=== PATIENT | female | born 1965 | race Caucasian/White ===

== ENCOUNTER 2018-03-16 22:33 | Inpatient (IN) | payer OTHER ==
[~2018-03-16 22:33] MED LIST: MELATONIN 5 MG TABLETS PO PRN
--- NOTE | 2018-03-16 23:42 | HP ---
COWS - Scale Resting Pulse: 1= [place] 81-100 Sweatin= Chills/Flushing Restless Observation: 1= Difficult to Sit Still Pupil Size: 0= Normal to Room Light Bone or Joint Aches: 1= Mild Discomfort Runny Nose/ Eye Tearin= Runny Nose/Eyes GI Upset > 30mins: 2= Nausea/Diarrhea Tremor Observation: 1= Tremor [place], Not Seen Yawning Observation: 1= 1-2x During Session Anxiety or Irritability: 2=Irritable/Anxious Goose Flesh Skin: 0=Smooth Skin COWS Score: 12 CIWA Score - CIWA Score Nausea/Vomitin-Mild Nausea/No Vomiting Muscle Tremors: 2 Anxiety: 3 Agitation: 3 Paroxysmal Sweats: 2 Orientation: 0-Oriented Tacttile Disturbances: 0-None Auditory Disturbances: 1-Very Mild Visual Disturbances: 0-None Headache: 2-Mild CIWA-Ar Total Score: 14 Admission [facility] Chief Complaint: opioid and alcohol withdrawal symptoms Allergies/Adverse Reactions: Allergies Allergy/AdvReac Type Severity Reaction Status Date / Time No Known Allergies Allergy Verified 03/16/18 23:57 History of Present Illness: 52 yo female with hx of nicotine, heroin and alcohol dependence is here seeking detox. Patient was seen at [facility] ED on 03/14/18 for elevated blood pressure and toothache. PMHX: HTN, low back pain, dentalgia, ADHD. Denies suicidal / homicidal ideation or hx of suicide attempt. Reports attempted detox at [facility] 6 months ago left after a day. Reports no significant period of sobriety. Denies hx of seizures or blackouts. denise Lang Date: 1965 Address: [address] [place] [address] [address] [place] [id number] Sex: Female Rx Written Rx Dispensed Drug Quantity Days Supply Prescriber Name 02/22/2018 02/23/2018 dextroamp-amphetamin 10 mg tab 45 15 Wyatt Fitzgerald MD 02/11/2018 02/11/2018 dextroamp-amphetamin 10 mg tab 45 15 Wyatt Fitzgerald MD 01/25/2018 01/25/2018 dextroamp-amphetamin 10 mg tab 45 15 Wyatt Fitzgerald MD 01/19/2018 01/19/2018 dextroamp-amphetamin 10 mg tab 30 10 Wyatt Fitzgerald MD 01/04/2018 01/04/2018 dextroamp-amphetamin 10 mg tab 60 15 Wyatt Fitzgerald MD 12/24/2017 12/25/2017 dextroamp-amphetamin 10 mg tab 60 15 Wyatt Fitzgerald MD 12/10/2017 12/11/2017 dextroamp-amphetamin 10 mg tab 60 15 Wyatt Fitzgerald MD 11/26/2017 11/28/2017 dextroamp-amphetamin 10 mg tab 60 15 Wyatt Fitzgerald MD 11/12/2017 11/15/2017 dextroamp-amphetamin 10 mg tab 60 15 Wyatt Fitzgerald MD 11/03/2017 11/03/2017 dextroamp-amphetamin 10 mg tab 60 15 Wyatt Fitzgerald MD 10/20/2017 10/22/2017 dextroamp-amphetamin 10 mg tab 60 15 Wyatt Fitzgerald MD 10/09/2017 10/10/2017 dextroamp-amphetamin 10 mg tab 60 15 Wyatt Fitzgerald MD 09/25/2017 09/29/2017 dextroamp-amphetamin 10 mg tab 60 15 Wyatt Fitzgerald MD 09/10/2017 09/14/2017 dextroamp-amphetamin 10 mg tab 60 15 Wyatt Fitzgerald MD Exam Limitations: No Limitations - Ebola screening Have you traveled outside of the country in the last 21 days: No Have you had contact with anyone from an Ebola affected area: No Have you been sick,other than usual withdrawal symptoms: No Do you have a fever: No - Review of Systems Constitutional: Chills, Diaphoresis, Loss of Appetite, Changes in sleep, Unintentional Wgt. Loss EENT: reports: Dental Problems (tx recently of dental pain on amoxicillin) Respiratory: reports: No Symptoms reported Cardiac: reports: No Symptoms Reported GI: reports: Nausea, Poor Appetite, Poor Fluid Intake : reports: No Symptoms Reported Musculoskeletal: reports: Back Pain Integumentary: reports: No Symptoms Reported Neuro: reports: Headache Endocrine: reports: Excessive Sweating, Increased Thirst Hematology: reports: No Symptoms Reported Psychiatric: reports: Anxious Other Systems: Reviewed and Negative Patient History - Patient Medical History Hx Anemia: No Hx Asthma: Yes (NO MEDS) Hx Chronic Obstructive Pulmonary Disease (COPD): No Hx Cancer: No Hx Cardiac Disorders: No Hx Congestive Heart Failure: No Hx Hypertension: No Hx Hypercholesterolemia: No Hx Pacemaker: No HX Cerebrovascular Accident: No Hx Seizures: No Hx Dementia: No Hx Diabetes: No Hx Gastrointestinal Disorders: No Hx Liver Disease: No Hx Genitourinary Disorders: No Hx Sexually Transmitted Disorders: No Hx Renal Disease (ESRD): No Hx Thyroid Disease: No Hx Human Immunodeficiency Virus (HIV): No (last 2012 negative, declines testing ) Hx Hepatitis C: No Hx Depression: Yes Hx Suicide Attempt: No Hx Bipolar Disorder: Yes Hx Schizophrenia: No - Patient Surgical History Past Surgical History: Yes Hx Neurologic Surgery: No Hx Cataract Extraction: No Hx Cardiac Surgery: No Hx Lung Surgery: No Hx Breast Surgery: No Hx Breast Biopsy: No Hx Abdominal Surgery: No Hx Appendectomy: No Hx Cholecystectomy: No Hx Genitourinary Surgery: No Hx Section: Yes (1 C- SECTION 13 years ago) Hx Orthopedic Surgery: No Anesthesia Reaction: No - PPD History Previous Implant?: Yes Documented Results: Negative w/proof Date: 06/01/16 PPD to be Administered?: Yes - Reproductive History Last Menstrual Period: 05/03/16 - Smoking Cessation Smoking history: Never smoked Have you smoked in the past 12 months: No Aproximately how many cigarettes per day: 15 Hx Chewing Tobacco Use: No Family Disease History - Family Disease History Family History: Unable to Obtain Admission Physical Exam BHS - Vital Signs Vital Signs: Vital Signs - 24 hr 03/16/18 23:24 Pulse Rate 87 Respiratory 18 Rate Blood Pressure 195/103 - Physical General Appearance: Yes: Disheveled, Mild Distress, Sweating, Anxious HEENTM: Yes: EOMI, Hearing grossly Normal, Normal ENT Inspection, Normocephalic , Normal Voice, VIV, Tm's normal Respiratory: Yes: Chest Non-Tender, Lungs Clear, Normal Breath Sounds, No Respiratory Distress, No Accessory Muscle Use Neck: Yes: No masses,lesions,Nodules, Trachea in good position Breast: Yes: Breast Exam Deferred Cardiology: Yes: Regular Rhythm, Regular Rate Abdominal: Yes: Normal Bowel Sounds, Non Tender, Flat, Soft Genitourinary: Yes: Within Normal Limits Back: Yes: Normal Inspection Musculoskeletal: Yes: full range of Motion, Gait Steady, Pelvis Stable, Back pain Extremities: Yes: Normal Capillary Refill, Normal Inspection, Normal Range of Motion, Non-Tender 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 intact, Fully Oriented, Alert, Motor Strength 5/5, Depressed Affect Integumentary: Yes: Normal Color, Warm, Diaphoresis Lymphatic: Yes: Within Normal Limits - Diagnostic (1) Hypertension Current Visit: Yes Status: Acute (2) Psychiatric disorder Current Visit: Yes Status: Suspected (3) Elevated blood pressure reading with diagnosis of hypertension Current Visit: Yes Status: Acute (4) Alcohol dependence with uncomplicated withdrawal Current Visit: Yes Status: Acute (5) Anxiety Current Visit: Yes Status: Acute (6) Nicotine dependence Current Visit: Yes Status: Acute Qualifiers: Nicotine product type: cigarettes (7) Opioid dependence with withdrawal Current Visit: Yes Status: Acute (8) Asthma Current Visit: Yes Status: Chronic Qualifiers: Asthma severity: mild Asthma complication type: uncomplicated Cleared for Admission [facility] - Detox or Rehab [facility] Level of Care: Medically Managed Detox Regimen/Protocol: Methadone/Librium [facility] Breath Alcohol Content Breath Alcohol Content: 0.008 Urine Pregancy Test - Result Urine Test Results: Negative- NO Line Present Urine Drug Screen - Results Drug Screen Negative: No Urine Drug Screen Results: THC-Marijuana, OPI-Opiates, AMP-Amphetamines, MTD- Methadone
[2018-03-16] MEDS ORDERED: MAGNESIUM CITRATE 300 ML BOTTLE PO PRN (23:46)
[2018-03-16] MEDS ORDERED: MAG HYDROX/AL HYDROX/SIMETH 30 ML UNIT-DOSE CUP PO PRN (23:46)
[2018-03-16] MEDS ORDERED: LOPERAMIDE HCL 2 MG CAPSULE PO PRN (23:46)
[2018-03-16] MEDS ORDERED: MAGNESIUM HYDROX 2400MG/30ML ORAL SUSPENSION 30 ML CUP PO PRN (23:46)
[2018-03-16] MEDS ORDERED: guaiFENesin/D-METHORPHAN HB 10 ML UNIT-DOSE CUPS PO PRN (23:46)
[2018-03-16] MEDS ORDERED: P-EPHED 60MG/TRIPROLIDI 2.5MG TABLET PO PRN (23:46)
[2018-03-16] MEDS ORDERED: MENTHOL/PHENOL 1 EACH UD MM PRN (23:46)
[2018-03-16] MEDS ORDERED: hydrOXYzine PAMOATE 50 MG CAPSULE (FP) PO PRN (23:46)
[2018-03-16] MEDS ORDERED: NICOTINE POLACRILEX 2 MG GUM BC PRN (23:46)
[2018-03-16] MEDS ORDERED: cloNIDine HCL 0.1 MG TABLET PO ONE (23:58)
[2018-03-17] MEDS ORDERED: METHADONE HCL 10 MG TABLET (FOR DETOX USE ONLY) PO ONE ×4 (00:05→22:00)
[2018-03-17] MEDS ORDERED: chlordiazePOXIDE HCL 25 MG CAPSULE PO ONE (00:05)
[2018-03-17] MEDS ORDERED: chlordiazePOXIDE HCL 25 MG CAPSULE PO PRN (00:05)
[2018-03-17] MEDS ORDERED: ALBUTEROL SO4 0.083% IH SOL 2.5 MG/3 ML VIAL.NEB. NEB PRN (00:08)
[2018-03-17] MEDS ORDERED: BENZOCAINE 20 % GEL 9 GM TUBE MM PRN (00:08)
[2018-03-17] MEDS: CYCLOBENZAPRINE HCL 5 MG TABLET PO SCH ×4 (01:53→22:48)
--- NOTE | 2018-03-17 07:35 | CONSULT ---
[facility] Psychiatric Consult - Data Date of interview: 03/17/18 Admission source: [facility] Identifying data: This is 52 year old female, single mothe rof three, homeless, unemployed , on PA, withy no psychiatric hospitalization history, with history of Amphetamins, Methadone, heroin and alcohol dependence is here seeking for detox. Patient reports withdrawal symptoms. Substance Abuse History: Urine Drug Screen Results: THC-Marijuana, OPI-Opiates, AMP-Amphetamines, MTD-Methadone Medical History: HTN, low back pain, dentalgia. MMTP 60MG PER DAY . D/C ON 2016 Psychiatric History: Patient reports history of ADHD, reports on Adderal prior to admission. As per computer there is a history of Bipolar Disorder. Reports no medications taking prior to admission, but Adderal forn ADHD. Physical/Sexual Abuse/Trauma History: Denies Additional Comment: Urine Drug Screen Results: THC-Marijuana, OPI-Opiates, AMP- Amphetamines, MTD-Methadone. Observation. Detox Unit Carte Protocol Mental Status Exam - Mental Status Exam Alert and Oriented to: Person Cognitive Function: Fair Patient Appearance: Unkempt Mood: Sad Affect: Flat Patient Behavior: Cooperative Speech Pattern: Delayed Voice Loudness: Mildly Soft/Quiet Thought Process: Goal Oriented Thought Disorder: Being Controlled Hallucinations: Denies Suicidal Ideation: Denies Homicidal Ideation: Denies Insight/Judgement: Fair Sleep: Difficulty falling asleep Appetite: Fair Muscle strength/Tone: Mild Hypotonicity Gait/Station: Normal Additional Comments: Observation. Detox Unit Carte Protocol Psychiatric Findings - Problem List ([place] 1, 2,3) (1) Alcohol dependence with uncomplicated withdrawal Current Visit: Yes Status: Acute (2) Elevated blood pressure reading with diagnosis of hypertension Current Visit: Yes Status: Acute (3) Nicotine dependence Current Visit: Yes Status: Acute Qualifiers: Nicotine product type: cigarettes (4) Opioid dependence with withdrawal Current Visit: Yes Status: Acute (5) Asthma Current Visit: Yes Status: Chronic Qualifiers: Asthma severity: mild Asthma complication type: uncomplicated (6) Bipolar disorder Current Visit: No Status: Suspected
[2018-03-17] MEDS: chlordiazePOXIDE HCL 25 MG CAPSULE PO SCH ×4 (07:37→22:47)
--- NOTE | 2018-03-17 07:37 | CONSULT ---
[facility] Psychiatric Consult - Data Date of interview: 03/17/18 Admission source: [facility] Substance Abuse History: Urine Drug Screen Results: THC-Marijuana, OPI-Opiates, AMP-Amphetamines, MTD-Methadone Additional Comment: Urine Drug Screen Results: THC-Marijuana, OPI-Opiates, AMP- Amphetamines, MTD-Methadone
--- NOTE | 2018-03-17 09:40 | EKG ---
Test Reason : Blood Pressure : / mmHG Vent. Rate : 077 BPM Atrial Rate : 077 BPM P-R Int : 132 ms QRS Dur : 086 ms QT Int : 418 ms P-R-T Axes : 062 072 059 degrees QTc Int : 473 ms NORMAL SINUS RHYTHM VOLTAGE CRITERIA FOR LEFT VENTRICULAR HYPERTROPHY ABNORMAL ECG WHEN COMPARED WITH ECG OF 30-APR-2005 15:26, NONSPECIFIC T WAVE ABNORMALITY NOW EVIDENT IN INFERIOR LEADS QT HAS LENGTHENED Confirmed by JUANITA MARI, OLGA ([id number]) on 03/17/2018 9:39:42 AM Referred By: Confirmed By:OLGA GRANT MD
--- NOTE | 2018-03-17 09:59 | PN ---
[facility] CIWA - CIWA Score Nausea/Vomitin-Mild Nausea/No Vomiting Muscle Tremors: 4-Moderate,w/Arms Extend Anxiety: 3 Agitation: 3 Paroxysmal Sweats: 1-Minimal Palms Moist Orientation: 0-Oriented Tacttile Disturbances: 0-None Auditory Disturbances: 0-None Visual Disturbances: 0-None Headache: 1-Very Mild CIWA-Ar Total Score: 13 BHS COWS - Scale Resting Pulse: 0= MD 80 or Below Sweatin= Chills/Flushing Restless Observation: 1= Difficult to Sit Still Pupil Size: 0= Normal to Room Light Bone or Joint Aches: 1= Mild Discomfort Runny Nose/ Eye Tearin= Nasal Congestion GI Upset > 30mins: 2= Nausea/Diarrhea Tremor Observation of Outstretched Hands: 2= Slight Tremor Visible Yawning Observation: 2= >3x During Session Anxiety or Irritability: 1=Feels Anxious/Irritable Goose Flesh Skin: 0=Smooth Skin COWS Score: 11 S Progress Note (SOAP) Subjective: BODY ACHE JOINT PAIN SWEAT TREMOR ANXIETY RESTLESSNESS Objective: 03/17/18 09:56 Vital Signs Temperature 97.7 F 03/17/18 09:42 Pulse Rate 76 03/17/18 09:42 Respiratory Rate 18 03/17/18 09:42 Blood Pressure 175/100 03/17/18 09:42 O2 Sat by Pulse Oximetry (%) LAB NOT AVAILABLE AT THIS TIME Assessment: 03/17/18 09:58 WITHDRAWAL SX 03/17/18 09:58 HYPERTENSION Plan: CONTINUE DETOX INCREASE LOSARTAN TO 50 MG BID ADDITION TO AMLODIPINE 10 MG BEGIN 03/17/18 10 AM CLONIDIN 0.1 MG Q6H PRN
[2018-03-17] MEDS ORDERED: LOSARTAN POTASSIUM 50 MG TABLET (FP) PO SCH (10:00)
[2018-03-17 10:05] LABS: HEMATOCRIT 37.8 % (32.4-45.2); HEMOGLOBIN 12.3 GM/dL (10.7-15.3); MCH 21.9 pg (25.7-33.7); MCHC 32.5 g/dl (32.0-36.0); MEAN CELL VOLUME 67.4 fl (80-96); MEAN PLT VOLUME 8.9 fl (7.5-11.1); PLATELET COUNT 249 K/MM3 (134-434); RBC 5.61 M/mm3 (3.60-5.2); RDW 15.9 % (11.6-15.6); WHITE BLOOD COUNT 7.7 K/mm3 (4.0-10.0)
[2018-03-17] MEDS: AMOXICILLIN 500 MG CAPSULE (FP) PO SCH ×2 (10:55→22:48)
[2018-03-17] MEDS: PRENATAL VITAMINS W/ FOLIC ACID TABLET (FP) PO SCH (10:55)
[2018-03-17] MEDS: amLODIPine BESYLATE 10 MG TABLET (FP) PO SCH (10:56)
[2018-03-17] MEDS: cloNIDine HCL 0.1 MG TABLET PO PRN ×2 (10:57→22:48)
[2018-03-17] MEDS: NICOTINE 14 MG/24 HOURS TOPICAL PATCH TD SCH (10:58)
[2018-03-17] MEDS ORDERED: LOSARTAN POTASSIUM 50 MG TABLET (FP) PO ONE (11:05)
[2018-03-17 13:22] LABS: CHLORIDE 104 mmol/L (98-107); POTASSIUM 3.9 mmol/L (3.5-5.1); SODIUM 139 mmol/L (136-145)
[2018-03-17 13:38] LABS: ALBUMIN 3.4 g/dl (3.4-5.0); ALK PHOS 54 U/L (45-117); ANION GAP 9 (8-16); BILIRUBIN,TOTAL 0.3 mg/dL (0.2-1.0); BLOOD UREA NITROGEN 11 mg/dL (7-18); CALCIUM 8.5 mg/dL (8.5-10.1); CO2 26 mmol/L (21-32); CREATININE 0.7 mg/dL (0.55-1.02); GLUCOSE,RANDOM 79 mg/dL (74-106); SGOT/AST 20 U/L (15-37); SGPT/ALT 19 U/L (12-78); TOT PROT 6.3 g/dl (6.4-8.2)
[2018-03-17] MEDS: LOSARTAN POTASSIUM 50 MG TABLET (FP) PO SCH (22:48)
[2018-03-17] MEDS: THIAMINE HCL 100 MG TABLET (FP) PO SCH (22:52)
[2018-03-18] MEDS: chlordiazePOXIDE HCL 25 MG CAPSULE PO SCH ×4 (06:14→22:37)
[2018-03-18] MEDS: CYCLOBENZAPRINE HCL 5 MG TABLET PO SCH ×3 (06:14→22:37)
[2018-03-18] MEDS ORDERED: METHADONE HCL 5 MG TABLET (FOR DETOX USE ONLY) PO SCH (10:00)
--- NOTE | 2018-03-18 10:56 | PN ---
[facility] CIWA - CIWA Score Nausea/Vomitin-Mild Nausea/No Vomiting Muscle Tremors: 3 Anxiety: 2 Agitation: 2 Paroxysmal Sweats: 1-Minimal Palms Moist Orientation: 0-Oriented Tacttile Disturbances: 1-Very Mild Itch/Numbness Auditory Disturbances: 0-None Visual Disturbances: 0-None Headache: 0-None Present CIWA-Ar Total Score: 10 BHS COWS - Scale Resting Pulse: 0= [place] 80 or Below Sweatin= Chills/Flushing Restless Observation: 1= Difficult to Sit Still Pupil Size: 0= Normal to Room Light Bone or Joint Aches: 1= Mild Discomfort Runny Nose/ Eye Tearin= Nasal Congestion GI Upset > 30mins: 2= Nausea/Diarrhea Tremor Observation of Outstretched Hands: 2= Slight Tremor Visible Yawning Observation: 1= 1-2x During Session Anxiety or Irritability: 1=Feels Anxious/Irritable Goose Flesh Skin: 0=Smooth Skin COWS Score: 10 [facility] Progress Note (SOAP) Subjective: joint pain body ache tremor sweat trouble sleep at night irritable restlessness Objective: 03/18/18 10:55 Vital Signs Temperature 97.3 F L 03/18/18 09:21 Pulse Rate 61 03/18/18 09:21 Respiratory Rate 18 03/18/18 09:21 Blood Pressure 126/75 03/18/18 09:21 O2 Sat by Pulse Oximetry (%) Laboratory Last Values WBC 7.7 K/mm3 (4.0-10.0) 03/17/18 06:40 RBC 5.61 M/mm3 (3.60-5.2) H 03/17/18 06:40 Hgb 12.3 GM/dL (10.7-15.3) 03/17/18 06:40 Hct 37.8 % (32.4-45.2) 03/17/18 06:40 MCV 67.4 fl (80-96) L 03/17/18 06:40 MCH 21.9 pg (25.7-33.7) L 03/17/18 06:40 MCHC 32.5 g/dl (32.0-36.0) 03/17/18 06:40 RDW 15.9 % (11.6-15.6) H 03/17/18 06:40 Plt Count 249 K/MM3 (134-434) 03/17/18 06:40 MPV 8.9 fl (7.5-11.1) 03/17/18 06:40 Sodium 139 mmol/L (136-145) 03/17/18 06:40 Potassium 3.9 mmol/L (3.5-5.1) 03/17/18 06:40 Chloride 104 mmol/L (98-107) 03/17/18 06:40 Carbon Dioxide 26 mmol/L (21-32) 03/17/18 06:40 Anion Gap 9 (8-16) 03/17/18 06:40 BUN 11 mg/dL (7-18) 03/17/18 06:40 Creatinine 0.7 mg/dL (0.55-1.02) 03/17/18 06:40 Creat Clearance w eGFR > 60 (>60) 03/17/18 06:40 Random Glucose 79 mg/dL (74-106) 03/17/18 06:40 Calcium 8.5 mg/dL (8.5-10.1) 03/17/18 06:40 Total Bilirubin 0.3 mg/dL (0.2-1.0) 03/17/18 06:40 AST 20 U/L (15-37) 03/17/18 06:40 ALT 19 U/L (12-78) 03/17/18 06:40 Alkaline Phosphatase 54 U/L (45-117) 03/17/18 06:40 Total Protein 6.3 g/dl (6.4-8.2) L 03/17/18 06:40 Albumin 3.4 g/dl (3.4-5.0) 03/17/18 06:40 RPR Titer Nonreactive (NONREACTIVE) 03/17/18 06:40 lab noted Assessment: 03/18/18 10:56 withdrawal sx Plan: continue detox
[2018-03-18] MEDS: PRENATAL VITAMINS W/ FOLIC ACID TABLET (FP) PO SCH (11:18)
[2018-03-18] MEDS: amLODIPine BESYLATE 10 MG TABLET (FP) PO SCH (11:18)
[2018-03-18] MEDS: AMOXICILLIN 500 MG CAPSULE (FP) PO SCH ×2 (11:18→22:37)
[2018-03-18] MEDS: LOSARTAN POTASSIUM 50 MG TABLET (FP) PO SCH ×2 (11:19→22:37)
[2018-03-18] MEDS: NICOTINE 14 MG/24 HOURS TOPICAL PATCH TD SCH (11:22)
--- NOTE | 2018-03-18 14:48 | PN ---
Psychiatric Progress Note Vital Signs: Vital Signs Period Temp Pulse Resp BP Sys/Quispe Pulse Ox Last 24 Hr 97.3 F-99.7 F 59-69 16-18 115-141/66-78 Date of Session: 03/18/18 Chief Complaint:: Agitation HPI: As per nursing reports patinent agitated and demending to start Adderal due to ADHD she has. Patient reports taking Adderal oprior to admission. Current Medications: Active Medications Generic Name Dose Route Start Last Admin Trade Name Freq PRN Reason Stop Dose Admin Acetaminophen 650 mg 03/16/18 23:46 Tylenol - PO Q4H PRN FEVER Al Hydroxide/Mg Hydroxide 30 ml 03/16/18 23:46 03/17/18 12:54 Mylanta Oral Suspension - PO 30 ml Q6H PRN Administration DYSPEPSIA Albuterol Sulfate 1 amp 03/17/18 00:08 Ventolin 0.083% Nebulizer Soln - NEB Q4H PRN SHORT OF BREATH/WHEEZING Amlodipine Besylate 10 mg 03/17/18 10:15 03/18/18 11:18 Norvasc - PO 10 mg DAILY ALFREDO Administration Amoxicillin 500 mg 03/17/18 10:00 03/18/18 11:18 Amoxicillin - PO 500 mg BID ALFREDO Administration Benzocaine 1 applic 03/17/18 00:08 Anbesol - MM Q2H PRN dentalgia Chlordiazepoxide HCl 25 mg 03/18/18 05:00 03/18/18 11:19 Librium - PO 03/18/18 23:01 Not Given F1M-PCT ALFREDO Chlordiazepoxide HCl 15 mg 03/19/18 05:00 Librium - PO 03/19/18 23:01 [id number] ALFREDO Chlordiazepoxide HCl 10 mg 03/20/18 05:00 Librium - PO 03/20/18 23:01 [id number]-REV ALFREDO Chlordiazepoxide HCl 25 mg 03/17/18 00:05 Librium - PO 03/20/18 00:05 Q4H PRN WITHDRAWAL(CONT SUBST) Clonidine 0.1 mg 03/17/18 10:05 03/17/18 22:48 Catapres - PO 0.1 mg Q6H PRN Administration HYPERTENSION Cyclobenzaprine HCl 5 mg 03/16/18 23:45 03/18/18 14:43 Cyclobenzaprine Hcl PO Not Given TID ALFREDO Eucalyptus/Menthol/Phenol/Sorbitol 1 each 03/16/18 23:46 Cepastat Lozenge - MM Q4H PRN SORE THROAT Guaifenesin 10 ml 03/16/18 23:46 Robitussin Dm - PO Q6H PRN COUGH Hydroxyzine Pamoate 50 mg 03/16/18 23:46 Vistaril - PO Q4H PRN AGITATION Ibuprofen 400 mg 03/16/18 23:46 Motrin - PO Q6H PRN PAIN LEVEL 4-6 Loperamide HCl 4 mg 03/16/18 23:46 Imodium - PO Q6H PRN DIARRHEA Losartan Potassium 50 mg 03/17/18 10:01 03/18/18 11:19 Cozaar - PO 50 mg BID ALFREDO Administration Magnesium Citrate 300 ml 03/16/18 23:46 Citroma - PO Q48H PRN CONSTIPATION Magnesium Hydroxide 30 ml 03/16/18 23:46 Milk Of Magnesia - PO DAILY PRN CONSTIPATION Melatonin 5 mg 03/16/18 22:00 Melatonin PO HS PRN INSOMNIA Methadone HCl 15 mg 03/19/18 10:00 Dolophine - PO 03/20/18 10:01 DAILY ALFREDO Methadone HCl 10 mg 03/21/18 10:00 Dolophine - PO 03/21/18 10:01 DAILY ALFREDO Methadone HCl 5 mg 03/22/18 06:00 Dolophine - PO 03/22/18 06:01 DAILY@0600 ALFREDO Nicotine 14 mg 03/17/18 10:00 03/18/18 11:22 Nicoderm Patch - TD Not Given DAILY [facility] Nicotine Polacrilex 2 mg 03/16/18 23:46 Nicorette Gum - BC Q2H PRN NICOTINE REPLACEMENT RX Multivit/Folic Acid/Iron 1 tab 03/17/18 10:00 03/18/18 11:18 Vitamins (Sjr) - PO 1 tab DAILY [facility] Administration Pseudoephedrine/Triprolidine 1 combo 03/16/18 23:46 Actifed - PO TID PRN NASAL CONGESTION Thiamine HCl 100 mg 03/17/18 22:00 03/17/18 22:52 Vitamin B1 - PO Not Given HS [facility] Medication(s) Change(s): none Provider note:: Patient engaged in supportive psychotherapy, relaxed, became cooperative and asking to be discharge on Thursday03/21/18. Denies suicidal and homicidal ideation. Mental Status Exam - Mental Status Exam Alert and Oriented to: Place, Person Cognitive Function: Fair Patient Appearance: Unkempt Mood: Anxious, Irritable Affect: Mood Congruent Patient Behavior: Impulsive, Talkative, Cooperative Speech Pattern: Appropriate Voice Loudness: Mildly Loud Thought Process: Goal Oriented Thought Disorder: Being Controlled Hallucinations: Denies Suicidal Ideation: Denies Homicidal Ideation: Denies Insight/Judgement: Fair Sleep: Difficulty falling asleep Appetite: Fair Muscle strength/Tone: Normal Gait/Station: Normal Additional Comments: Observation Psychiatric Treatment Plan - Problem List (1) Alcohol dependence with uncomplicated withdrawal Current Visit: Yes (2) Elevated blood pressure reading with diagnosis of hypertension Current Visit: Yes (3) Nicotine dependence Current Visit: Yes Qualifiers: Nicotine product type: cigarettes (4) Opioid dependence with withdrawal Current Visit: Yes (5) Asthma Current Visit: Yes Qualifiers: Asthma severity: mild Asthma complication type: uncomplicated (6) Bipolar disorder Current Visit: No Initial treatment plan: Observation. Detox Unit Care
[2018-03-18] MEDS: THIAMINE HCL 100 MG TABLET (FP) PO SCH (22:37)
[2018-03-19] MEDS: CYCLOBENZAPRINE HCL 5 MG TABLET PO SCH (06:24)
[2018-03-19] MEDS: chlordiazePOXIDE 5 MG CAPSULE PO SCH ×4 (06:26→23:19)
[2018-03-19] MEDS: IBUPROFEN 400 MG TABLET (FP) PO PRN (06:26)
[2018-03-19] MEDS: ACETAMINOPHEN 325 MG TABLET (FP) PO PRN ×2 (09:03→18:19)
--- NOTE | 2018-03-19 10:52 | PN ---
[facility] Progress Note (SOAP) Subjective: PT C/O SEVER BACK PAIN. PT IS OOB AMBULATING WITH STEADY GAIT. PT HAS HIGH ANXIETY AND DIFFICULTY UNDERSTANDING TREATMENT MODALITY. EXPRESSING DESIRE TO LEAVE TODAY,TOMORROW,THURSDAY WITHOUT REASONS. COUNSELOR AND THIS TEENAGE BABYSITTER HAVE SPOKEN TO PT EXPLAINING DETOX MEDICATION TAPER AND POSSIBLE REHAB OPPORTUNITY. PT IS NOT FULLY RECEPTIVE TO EXPLANATIONS. Objective: 03/19/18 10:52 Vital Signs 03/19/18 03/19/18 03/19/18 03:30 07:24 10:10 Temperature 97.7 F 98.6 F Pulse Rate 62 87 Respiratory 18 18 16 Rate Blood Pressure 181/86 150/98 Laboratory Tests 03/17/18 03/17/18 03/17/18 06:40 06:40 06:40 WBC 7.7 RBC 5.61 H Hgb 12.3 Hct 37.8 MCV 67.4 L MCH 21.9 L MCHC 32.5 RDW 15.9 H Plt Count 249 MPV 8.9 Sodium 139 Potassium 3.9 Chloride 104 Carbon Dioxide 26 Anion Gap 9 BUN 11 Creatinine 0.7 Creat Clearance w eGFR > 60 Random Glucose 79 Calcium 8.5 Total Bilirubin 0.3 AST 20 ALT 19 Alkaline Phosphatase 54 Total Protein 6.3 L Albumin 3.4 RPR Titer Nonreactive Assessment: 03/19/18 10:53 WITHDRAWAL SX Plan: CONTINUE DETOX COUNSELOR TO FOLLOW UP WITH PATIENT NEEDED. INCREASE FLEXERIL 10 MG PO Q8H DIRECTED FOR MUSCLE SPASMS LIDOCAINE PATCH 5% TP DAILY DIRECTED FOR PAIN
[2018-03-19] MEDS: METHADONE HCL 5 MG TABLET (FOR DETOX USE ONLY) PO SCH (11:03)
[2018-03-19] MEDS: PRENATAL VITAMINS W/ FOLIC ACID TABLET (FP) PO SCH (11:05)
[2018-03-19] MEDS: amLODIPine BESYLATE 10 MG TABLET (FP) PO SCH (11:05)
[2018-03-19] MEDS: AMOXICILLIN 500 MG CAPSULE (FP) PO SCH ×2 (11:05→23:17)
[2018-03-19] MEDS: cloNIDine HCL 0.1 MG TABLET PO PRN (11:05)
[2018-03-19] MEDS: LOSARTAN POTASSIUM 50 MG TABLET (FP) PO SCH ×2 (11:05→23:17)
[2018-03-19] MEDS: LIDOCAINE 5% TOPICAL PATCH TP SCH (11:05)
[2018-03-19] MEDS: NICOTINE 14 MG/24 HOURS TOPICAL PATCH TD SCH (11:09)
[2018-03-19] MEDS: CYCLOBENZAPRINE HCL 10 MG TABLET (FP) PO SCH ×2 (15:39→23:17)
--- NOTE | 2018-03-19 21:16 | PN ---
[facility] Progress Note Note: Patient c/o severe back pain and requesting percocet. Seen earlier by a provider and was prescribed flexeril and lidocaine patch which she states is not helping. Patient states had been using unprescribed percocets as well as heroin prior to admission. Requesting to leave AMA. Vital Signs - 24 hr 03/18/18 03/19/18 03/19/18 23:09 00:30 03:30 Temperature 98.2 F Pulse Rate 71 Respiratory 18 18 18 Rate Blood Pressure 141/79 03/19/18 03/19/18 03/19/18 07:24 10:10 18:04 Temperature 97.7 F 98.6 F 98.6 F Pulse Rate 62 87 77 Respiratory 18 16 18 Rate Blood Pressure 181/86 150/98 139/88 A: Back w/o abnormalities or c/o increased tenderness upon palpation. FROM. Discussed the correlation of percocets and heroin use disorder and patient states is aware. Discussed risk of relapse and overdose if leaves AMA. Reviewed changes in to pain management and patient agrees to stay.
[2018-03-19] MEDS ORDERED: IBUPROFEN 400 MG TABLET (FP) PO PRN (21:19)
[2018-03-19] MEDS ORDERED: LIDOCAINE PATCH REMOVAL MC SCH (22:00)
[2018-03-19] MEDS: METHYL SALICYLATE/MENTHOL OINT 30 GM TUBE TP SCH (23:17)
[2018-03-19] MEDS: THIAMINE HCL 100 MG TABLET (FP) PO SCH (23:18)
[2018-03-20] MEDS: ACETAMINOPHEN 325 MG TABLET (FP) PO PRN (00:02)
[2018-03-20] MEDS: chlordiazePOXIDE HCL 10 MG CAPSULE PO SCH ×2 (05:27→11:01)
[2018-03-20] MEDS: CYCLOBENZAPRINE HCL 10 MG TABLET (FP) PO SCH (05:27)
[2018-03-20] MEDS: IBUPROFEN 400 MG TABLET (FP) PO PRN (06:00)
[2018-03-20 06:38] VITALS: TEMP 98.1
[2018-03-20 10:25] VITALS: BP 138/90; PULSE 83
[2018-03-20] MEDS ORDERED: METHADONE HCL 10 MG TABLET PO ONE (11:00)
[2018-03-20] MEDS: METHADONE HCL 5 MG TABLET (FOR DETOX USE ONLY) PO SCH ×2 (11:01→11:23)
[2018-03-20] MEDS: AMOXICILLIN 500 MG CAPSULE (FP) PO SCH (11:01)
[2018-03-20] MEDS: PRENATAL VITAMINS W/ FOLIC ACID TABLET (FP) PO SCH (11:01)
[2018-03-20] MEDS: LOSARTAN POTASSIUM 50 MG TABLET (FP) PO SCH (11:02)
[2018-03-20] MEDS: METHYL SALICYLATE/MENTHOL OINT 30 GM TUBE TP SCH (11:06)
[2018-03-20] MEDS: NICOTINE 14 MG/24 HOURS TOPICAL PATCH TD SCH (11:06)
[2018-03-20] MEDS: amLODIPine BESYLATE 10 MG TABLET (FP) PO SCH (11:06)
[2018-03-20] MEDS: LIDOCAINE 5% TOPICAL PATCH TP SCH (11:06)
--- NOTE | 2018-03-20 12:06 | PN ---
[facility] Progress Note (SOAP) Subjective: Anxious Requesting to leave tomorrow to go take care of her grandkids Objective: 03/20/18 12:03 Anxious Vital Signs Temperature 98.1 F 03/20/18 10:25 Pulse Rate 83 03/20/18 10:25 Respiratory Rate 16 03/20/18 10:25 Blood Pressure 138/90 03/20/18 10:25 O2 Sat by Pulse Oximetry (%) Assessment: 03/20/18 12:03 Withdrawal sx Plan: Continue detox Regimen adjusted to allow for d/c tomorrow
--- NOTE | 2018-03-20 14:19 | DS ---
[facility] Detox Discharge Summary Admission Date: 03/16/18 Discharge Date: 03/20/18 - History Present History: Alcohol Dependence, Cocaine Dependence, Opioid Dependence, Sedative Dependence Additional Comments: pt requesting to leave today, declines education on need to complete detox States she is going to go to rehab in the community Declines med refill, states "I just got new refills before I came" A & O x 3, anxious, in stable condition Pertinent Past History: Seizures - Physical Exam Results Vital Signs: Vital Signs Temperature 98.1 F 03/20/18 10:25 Pulse Rate 83 03/20/18 10:25 Respiratory Rate 16 03/20/18 10:25 Blood Pressure 138/90 03/20/18 10:25 O2 Sat by Pulse Oximetry (%) - Medication Discharge Medications: Ambulatory Orders Amoxicillin - [Amoxicillin 500mg Capsule -] 500 mg PO BID 03/16/18 Amphetamine Sulfate [Evekeo] 10 mg PO TID 03/16/18 Losartan Potassium [Cozaar -] 50 mg PO DAILY 03/16/18 - Diagnosis (1) Alcohol dependence with uncomplicated withdrawal Current Visit: Yes Status: Acute (2) Anxiety Current Visit: Yes Status: Acute (3) Back pain Current Visit: Yes Status: Acute Qualifiers: Back pain location: low back pain Chronicity: chronic Back pain laterality: unspecified Sciatica presence: without sciatica Qualified Code(s ): M54.5 - Low back pain; G89.29 - Other chronic pain (4) Elevated blood pressure reading with diagnosis of hypertension Current Visit: Yes Status: Acute (5) Nicotine dependence Current Visit: Yes Status: Acute Qualifiers: Nicotine product type: cigarettes Substance use status: in withdrawal Qualified Code(s): F17.213 - Nicotine dependence, cigarettes, with withdrawal (6) Asthma Current Visit: Yes Status: Chronic Qualifiers: Asthma severity: mild Asthma complication type: uncomplicated (7) Hypertension Current Visit: Yes Status: Chronic Qualifiers: Hypertension type: essential hypertension Qualified Code(s): I10 - Essential (primary) hypertension (8) Opioid dependence with withdrawal Current Visit: Yes Status: Chronic - AMA Did Patient Leave Against Medical Advice: Yes
[2018-03-21] MEDS ORDERED: METHADONE HCL 10 MG TABLET PO ONE (06:00)
[2018-03-21] MEDS ORDERED: METHADONE HCL 10 MG TABLET (FOR DETOX USE ONLY) PO SCH (10:00)
[2018-03-22] MEDS ORDERED: METHADONE HCL 10 MG TABLET (FOR DETOX USE ONLY) PO SCH (06:00)
== END 2018-03-20 13:30 | disposition left against medical advice (07) | DRG 770 ==
LOC: YASAS 22:33 → Y6N 23:45
PROVIDERS: ADMIT Surgery; ATTEND Surgery
PROC: HZ2ZZZZ Detoxification Services for Substance Abuse Treatment (ICD-10-PCS; principal; 2018-03-16)
DX: F11.23 Opioid dependence with withdrawal (principal); F10.230 Alcohol dependence with withdrawal, uncomplicated; F17.213 Nicotine dependence, cigarettes, with withdrawal; F41.9 Anxiety disorder, unspecified; F31.9 Bipolar disorder, unspecified; I10 Essential (primary) hypertension; M54.5 Low back pain; G89.29 Other chronic pain; J45.909 Unspecified asthma, uncomplicated
CPT/HCPCS: 36415; 80053; 85027; 86593; 93005; 93010; J0735

== ENCOUNTER 2019-10-28 13:30 | Emergency (ER) | payer OTHER ==
[2019-10-28 13:53] VITALS: BP 196/109; PULSE 92; TEMP 97.9; BMI 23.0
--- NOTE | 2019-10-28 13:54 | PDOC ---
Rapid Medical Evaluation Chief Complaint: RX Refill Time Seen by Provider: 10/28/19 13:48 Medical Evaluation: Allergies Allergy/AdvReac Type Severity Reaction Status Date / Time No Known Allergies Allergy Verified 10/28/19 13:49 10/28/19 13:52 Pt c/o: needs suboxone strips, unable to obtain refill Pt on brief exam: bp slightly elevated 9did not take her bp meds today), otherwise no acute findings Pt ordered for: none Pt to proceed to the ED Discharge Disposition - Diagnosis Elevated blood pressure reading with diagnosis of hypertension Nicotine dependence Qualifiers: Nicotine product type: cigarettes Substance use status: uncomplicated Qualified Code(s): F17.210 - Nicotine dependence, cigarettes, uncomplicated Asthma Qualifiers: Asthma severity: mild Asthma persistence: intermittent Asthma complication type : uncomplicated Qualified Code(s): J45.20 - Mild intermittent asthma, uncomplicated - Discharge Dispostion Disposition: HOME Condition at time of disposition: Fair - Referrals Referrals: Kerri Mantilla FNP [Primary Care Provider] - - Patient Instructions Additional Instructions: Take antibiotics as prescribed. Contact the nurse practitioner who prescribes your Suboxone for refills. Keep appointment with your nurse practitioner on Thursday as previously scheduled. Return to the emergency department any new or worsening symptoms. Thank you very much for choosing us to provide your emergent healthcare needs. - Post Discharge Activity
[2019-10-28] MEDS ORDERED: LOSARTAN POTASSIUM 50 MG TABLET (FP) PO ONE (14:37)
[2019-10-28] MEDS ORDERED: LOSARTAN POTASSIUM 50 MG TABLET (FP) ONE (14:41)
[2019-10-28] MEDS: ALBUTEROL SO4 2.5/IPRATROPIUM 0.5 INH SOL 3 ML VIAL.NEB. NEB SCH ×4 (14:53→15:27)
[2019-10-28] MEDS ORDERED: ALBUTEROL SO4 2.5/IPRATROPIUM 0.5 INH SOL 3 ML VIAL.NEB. NEB ONE (14:54)
--- NOTE | 2019-10-28 14:56 | PDOC ---
History of Present Illness - General Chief Complaint: RX Refill Stated Complaint: ALTERED MENTAL Time Seen by Provider: 10/28/19 13:48 History Source: Patient Exam Limitations: No Limitations - History of Present Illness Initial Comments: 10/28/19 14:50 HISTORY OF PRESENT ILLNESS: Is a 54-year-old woman past medical history of hypertension and opiate use who presents emergency department for evaluation of cough for the past 6 days as well as requesting Suboxone refills. Patient reports her coughing is so bad that she "cannot smoke cigarettes." In addition patient reports her cough is productive with yellow/green sputum. She denies any fevers or chills. Patient noted to be hypertensive upon arrival in the emergency department but states she has not taken her losartan today. She states she has plenty of losartan left on her most recent refill. No recent travel or sick contacts. PAST MEDICAL HISTORY: Hypertension, polysubstance abuse SURGICAL HISTORY: Denies ALLERGIES: No known drug allergies REVIEW OF SYSTEMS General/Constitutional: Denies fever or chills. Denies weakness, weight change. HEENT: Denies change in vision. Denies ear pain or discharge. Denies sore throat. Cardiovascular: Denies chest pain or shortness of breath. Respiratory: See HPI Gastrointestinal: Denies nausea, vomiting, diarrhea or constipation. Denies rectal bleeding. Genitourinary: Denies dysuria, frequency, or change in urination. Musculoskeletal: Denies joint or muscle swelling or pain. Denies neck or back pain. Skin and breasts: Denies rash or easy bruising. Neurologic: Denies headache, vertigo, loss of consciousness, or loss of sensation. Psychiatric: Denies depression or anxiety. Endocrine: Denies increased thirst. Denies abnormal weight change. Hematologic/Lymphatic: Denies anemia, easy bleeding, or history of blood clots. Allergic/Immunologic: Denies hives or skin allergy. Denies latex allergy. PHYSICAL EXAM General Appearance: Well-appearing, appropriately dressed. No apparent distress , no intoxication. HEENT: EOMI, PERRLA, normal ENT inspection, normal voice, TMs normal, pharynx normal. No conjunctival pallor. No photophobia, scleral icterus. Neck: Supple. Trachea midline. No tenderness, rigidity, carotid bruit, stridor , lymphadenopathy, or thyromegaly. Respiratory/Chest: Scattered wheezes present with coarse crackles present bilateral bases. No sensory muscle use noted. Speaking in full sentences. Cardiovascular: RRR. S1, S2. No JVD, murmur, bradycardia, tachycardia. Vascular Pulses: Dorsalis-Pedis (R): 2+, Dorsalis-Pedis (L): 2+ Integumentary: Appropriate color, dry, warm. No cyanosis, erythema, jaundice or rash Past History - Past Medical History Allergies/Adverse Reactions: Allergies Allergy/AdvReac Type Severity Reaction Status Date / Time No Known Allergies Allergy Verified 10/28/19 13:49 Home Medications: Ambulatory Orders Albuterol Sulfate Inhaler - [Ventolin Hfa Inhaler -] 2 inh PO Q4H PRN 07/29/17 Amoxicillin - [Amoxicillin 500mg Capsule -] 500 mg PO BID #20 capsule 03/14/18 Losartan Potassium 50 mg PO DAILY #30 tablet 03/14/18 Amoxicillin - [Amoxicillin 500mg Capsule -] 500 mg PO BID 03/16/18 Amphetamine Sulfate [Evekeo] 10 mg PO TID 03/16/18 Losartan Potassium [Cozaar -] 50 mg PO DAILY 03/16/18 Azithromycin [Zithromax 250mg Tablets -] 250 mg PO UTDICT #6 tab 10/28/19 Anemia: Yes (Not on medication) Asthma: Yes (MDI) Cancer: No Cardiac Disorders: No CVA: No COPD: No CHF: No Dementia: No Diabetes: No GI Disorders: No Disorders: No HTN: No Hypercholesterolemia: No Kidney Stones: No Liver Disease: No Seizures: No Thyroid Disease: No - Surgical History Abdominal Surgery: No Appendectomy: No Cardiac Surgery: No Cholecystectomy: No Lung Surgery: No Neurologic Surgery: No Orthopedic Surgery: No - Reproductive History PID: No - Psycho Social/Smoking Cessation Hx Smoking Status: Yes Smoking History: Current some day smoker Have you smoked in the past 12 months: Yes Number of Cigarettes Smoked Daily: 2 Information on smoking cessation initiated: No 'Breaking Loose' booklet given: 03/14/18 Hx Alcohol Use: No Drug/Substance Use Hx: No Substance Use Type: None, Alcohol, Heroin Hx Substance Use Treatment: Yes ([facility] 2016) *Physical Exam - Vital Signs Last Vital Signs Temp Pulse Resp BP Pulse Ox 97.9 F 92 H 16 196/109 H 99 10/28/19 13:49 10/28/19 13:49 10/28/19 13:49 10/28/19 13:49 10/28/19 13:49 ED Treatment Course - RADIOLOGY Radiology Studies Ordered: Category Date Time Status CHEST PA & LAT [RAD] Stat Radiology 10/28/19 14:45 Ordered - Medications Given in the ED: ED Medications Discontinued Medications Generic Name Dose Route Start Last Admin Trade Name Gilberto PRN Reason Stop Dose Admin Losartan Potassium 50 mg 10/28/19 14:37 10/28/19 14:43 Cozaar - PO 10/28/19 14:38 50 mg ONCE ONE Administration Medical Decision Making - Medical Decision Making 10/28/19 14:54 A/P: 54-year-old woman here requesting refills of Suboxone as well as productive cough for the past 5 days. Speaking full sentences Coarse crackles and wheezes present in bilateral bases Hypertensive upon arrival with blood pressure 196/109. Patient has not taken blood pressure medication today. Extensive discussion had with patient's explaining I am unable to prescribe Suboxone at this time. Patient given the name of her provider who prescribes her Suboxone treatments. I will contact nurse practitioner Hoda Snowden to see if she can fill a 1 week supply until she can follow-up on Thursday of next week. Losartan 50 mg orally now DuoNeb's x4 Chest x-ray Reassess 10/28/19 15:22 Patient is refusing chest x-ray at this time. Repeat lung exam reveals coarse crackles in bilateral bases but wheezing has resolved. Patient has expressed the desire not to wait for return call to try to fill her Suboxone. Patient refuses smoking cessation counseling. As patient has normal O2 saturation, is afebrile and a normal respiratory rate I feel it is safe to discharge the patient home. Given that she is a smoker I will treat the patient with azithromycin as an outpatient. Strict return precautions have been provided to the patient was verbalized understanding of instructions. 10/28/19 15:26 Discharge - Discharge Information Problems reviewed: Yes Clinical Impression/Diagnosis: Elevated blood pressure reading with diagnosis of hypertension Nicotine dependence Qualifiers: Nicotine product type: cigarettes Substance use status: uncomplicated Qualified Code(s): F17.210 - Nicotine dependence, cigarettes, uncomplicated Asthma Qualifiers: Asthma severity: mild Asthma persistence: intermittent Asthma complication type : uncomplicated Qualified Code(s): J45.20 - Mild intermittent asthma, uncomplicated Condition: Fair Disposition: HOME - Admission No - Additional Discharge Information Prescriptions: Azithromycin [Zithromax 250mg Tablets -] 250 mg PO UTDICT #6 tab - Follow up/Referral Referrals: Kerri Mantilla FNP [Primary Care Provider] - - Patient Discharge Instructions Additional Instructions: Take antibiotics as prescribed. Contact the nurse practitioner who prescribes your Suboxone for refills. Keep appointment with your nurse practitioner on Thursday as previously scheduled. Return to the emergency department any new or worsening symptoms. Thank you very much for choosing us to provide your emergent healthcare needs. - Post Discharge Activity
== END 2019-10-28 15:30 | disposition home or self-care (01) ==
LOC: JERFT 13:30
PROC: 3E0F7GC Introduction of Other Therapeutic Substance into Respiratory Tract, Via Natural or Artificial Opening (ICD-10-PCS; principal; 2019-10-28)
DX: J45.20 Mild intermittent asthma, uncomplicated (principal); F17.210 Nicotine dependence, cigarettes, uncomplicated; I10 Essential (primary) hypertension
CPT/HCPCS: 94640; 99281-25

== ENCOUNTER 2021-06-02 15:55 | Inpatient (IN) | payer OTHER ==
[2021-06-02] MEDS ORDERED: ACETAMINOPHEN 1000 MG/100 ML VIAL (NON FORMULARY) IVPB ONE (16:22)
[2021-06-02] MEDS ORDERED: SODIUM CHLORIDE 0.9% 500 ML INFUS.BAG IV ONE ×2 (16:22→18:10)
[2021-06-02] MEDS ORDERED: ONDANSETRON 4 MG/2 ML VIAL IVPUSH ONE (16:22)
[2021-06-02 17:02] LABS: MCH 20.2 pg (25.7-33.7); WHITE BLOOD COUNT 8.5 K/mm3 (4.0-10.8)
[2021-06-02] MEDS ORDERED: ACETAMINOPHEN INJECTION 100 ML IVPB ONE (17:14)
[2021-06-02] MEDS ORDERED: ONDANSETRON 4 MG/2 ML VIAL ONE (17:14)
[2021-06-02 17:22] LABS: ALBUMIN 3.8 g/dl (3.4-5.0); ALK PHOS 177 U/L (45-117); ANION GAP 12 MMOL/L (8-16); BILIRUBIN,TOTAL 0.9 mg/dl (0.2-1); CALCIUM 8.6 mg/dl (8.5-10); CHLORIDE 85 mmol/L (98-107); CO2 29 mmol/L (21-32); CREATININE 0.6 mg/dl (0.55-1.3); GLUCOSE,RANDOM 108 mg/dl (74-106); SGOT/AST 72 U/L (15-37); SGPT/ALT 40 U/L (13-61); SODIUM 126 mmol/L (136-145); TOT PROT 7.4 g/dl (6.4-8.2)
[2021-06-02 17:23] LABS: HEMOGLOBIN 15.3 GM/dl (10.7-15.3); MEAN CELL VOLUME 67.3 fl (80-96); MEAN PLT VOLUME 7.1 fl (7.5-11.1); PLATELET COUNT 165 10^3/uL (134-434); RDW 29.4 % (11.6-15.6)
[2021-06-02 17:35] LABS: ADD RBC MORPHOLOGY YES; RBC 7.58 M/mm3 (3.60-5.2)
[2021-06-02 17:48] LABS: EPITHELIAL CELLS FEW /hpf
[2021-06-02 18:13] LABS: LIPASE 63 U/L (73-393)
[2021-06-02 18:30] LABS: ANISOCYTOSIS 3+; MACROCYTOSIS 2+
[2021-06-02 18:31] LABS: PLATELET ESTIMATE ADEQUATE
[2021-06-02] MEDS ORDERED: ASPIRIN 81 MG CHEWABLE TABLETS PO ONE (18:47)
[2021-06-02] MEDS ORDERED: ASPIRIN 81 MG CHEWABLE TABLETS ONE (18:48)
[2021-06-02] MEDS ORDERED: VANCOMYCIN 1 GM in D5W (PRE-DOCKED) 1,000 MG/250 ML IVPB ONE (18:48)
[2021-06-02] MEDS ORDERED: VANCOMYCIN 1,000 MG VIAL (RESTRICTED TO ID ONLY) ONE (18:49)
[2021-06-02 18:53] LABS: LACTIC ACID 2.4 mmol/L (0.4-2.0)
[2021-06-02] MEDS ORDERED: MAGNESIUM SULF 50% (8.12 MEQ/2 ML-1 GM VIAL) IVPB ONE (18:59)
[2021-06-02] MEDS ORDERED: MAGNESIUM 1GM/D5W - 2 GM/200 ML IVPB IVPB ONE (19:01)
[2021-06-02] MEDS ORDERED: LORazepam 2 MG/ML SDV VIAL IVPUSH ONE (19:19)
[2021-06-02] MEDS ORDERED: LORazepam 2 MG/ML SDV VIAL ONE (19:21)
[2021-06-02 21:56] VITALS: BMI 29.0
[2021-06-02 22:29] LABS: PHENCYCLIDINE,URINE NEGATIVE (NEGATIVE)
[2021-06-02 22:40] LABS: COCAINE, UR POSITIVE (NEGATIVE); METHADONE, UR POSITIVE (NEGATIVE); OPIATES, URI POSITIVE (NEGATIVE); URINE AMPHETAMINES NEGATIVE (NEGATIVE); URINE BARBITURATES NEGATIVE (NEGATIVE); URINE BENZODIAZEPINES NEGATIVE (NEGATIVE)
[2021-06-03] MEDS ORDERED: MELATONIN 5 MG TABLETS PO PRN (00:33)
[2021-06-03] MEDS ORDERED: ACETAMINOPHEN 325 MG TABLET (FP) PO PRN (00:33)
[2021-06-03] MEDS ORDERED: SODIUM CHLORIDE 1,000 ML IV SCH (01:00)
[2021-06-03 01:09] LABS: CALCIUM 7.7 mg/dL (8.5-10.1); MAGNESIUM 1.9 mg/dL (1.8-2.4)
[2021-06-03 01:12] LABS: CREATININE 0.6 mg/dL (0.55-1.3)
[2021-06-03] MEDS ORDERED: ALBUTEROL SO4 HFA INHALER IH PRN (01:13)
[2021-06-03 03:11] LABS: ALBUMIN 3.3 g/dl (3.4-5.0)
[2021-06-03] MEDS ORDERED: methaDONE HCL 40 MG DISPERSABLE TABLET PO SCH (06:15)
[2021-06-03 06:27] VITALS: TEMP 97.9
[2021-06-03] MEDS ORDERED: ALBUTEROL SO4 2.5/IPRATROPIUM 0.5 INH SOL 3 ML VIAL.NEB. NEB PRN (06:44)
[2021-06-03] MEDS ORDERED: methaDONE 40 MG, methaDONE 20 MG PO SCH ×3 (06:45→10:00)
[2021-06-03] MEDS ORDERED: VANCOMYCIN 1 GRAM (PRE-DOCKED) 1,000 MG/250 ML BAG IVPB SCH (07:00)
[2021-06-03 09:11] LABS: BASO % 1.4 % (0-2.0); EOS % 2.7 % (0-4.5); HEMATOCRIT 48.3 % (32.4-45.2); HEMOGLOBIN 14.4 GM/dl (10.7-15.3); LYMPH % 9.2 % (8-40); MCHC 29.7 g/dl (32.0-36.0); MEAN CELL VOLUME 66.9 fl (80-96); MONO % 5.2 % (3.8-10.2); NEUT % 81.5 % (42.8-82.8); PLATELET COUNT 156 10^3/uL (134-434); WHITE BLOOD COUNT 7.7 K/mm3 (4.0-10.8)
[2021-06-03] MEDS ORDERED: methaDONE HCL 40 MG DISPERSABLE TABLET ONE (09:31)
[2021-06-03] MEDS ORDERED: methaDONE HCL 10 MG TABLET ONE (09:32)
[2021-06-03 09:50] LABS: RBC 7.23 M/mm3 (3.60-5.2)
[2021-06-03 09:51] LABS: MCH 19.9 pg (25.7-33.7)
[2021-06-03] MEDS ORDERED: VANCOMYCIN 1,000 MG in DEXTROSE 5%-WATER - 250 ML IVPB SCH (10:00)
[2021-06-03] MEDS ORDERED: amLODIPine BESYLATE 10 MG TABLET (FP) PO SCH (10:00)
[2021-06-03] MEDS ORDERED: MONTELUKAST NA 10 MG TABLET PO SCH (10:00)
[2021-06-03 10:14] LABS: CALCIUM 8.1 mg/dL (8.5-10.1)
[2021-06-03 10:17] LABS: CREATININE 0.7 mg/dL (0.55-1.3)
[2021-06-03 10:18] LABS: BLOOD UREA NITROGEN 6.8 mg/dL (7-18)
[2021-06-03 10:20] LABS: TOT PROT 7.6 g/dl (6.4-8.2)
[2021-06-03 10:23] LABS: ALBUMIN 3.1 g/dl (3.4-5.0)
[2021-06-03 10:24] LABS: MAGNESIUM 1.9 mg/dL (1.8-2.4)
[2021-06-03 10:34] LABS: BILIRUBIN,TOTAL 1.2 mg/dL (0.2-1)
[2021-06-03 11:47] LABS: N-TERMINAL BNP 1820.8 pg/ml (5-125)
[2021-06-03] MEDS ORDERED: LOSARTAN POTASSIUM 50 MG TABLET PO SCH (12:45)
[2021-06-03] MEDS ORDERED: ENOXAPARIN NA (PORCINE) 40 MG/0.4 ML DISP.SYRIN SQ SCH (13:00)
[2021-06-03] MEDS ORDERED: FUROSEMIDE 40 MG/4 ML INJECTABLE VIAL IVPUSH SCH (13:15)
[2021-06-03] MEDS ORDERED: ALBUTEROL SO4 2.5/IPRATROPIUM 0.5 INH SOL 3 ML VIAL.NEB. NEB SCH (14:00)
[2021-06-03 14:04] VITALS: BP 138/86; PULSE 89
[2021-06-03] MEDS ORDERED: ATORVASTATIN CA 40 MG TABLET (FP) PO SCH (22:00)
[2021-06-04] MEDS ORDERED: methaDONE HCL 10 MG TABLET PO SCH (06:00)
[2021-06-04 13:08] LABS: SARS-CoV-2 NAA Not Detected (Not Detected)
== END 2021-06-03 17:06 | disposition left against medical advice (07) | DRG 383 ==
LOC: FER 15:55 → FM/S 20:55
PROVIDERS: ADMIT Internal Medicine; ATTEND Nurse Practitioner Acute Care
DX: L03.115 Cellulitis of right lower limb (principal); J96.01 Acute respiratory failure with hypoxia; E87.1 Hypo-osmolality and hyponatremia; I50.32 Chronic diastolic (congestive) heart failure; F31.9 Bipolar disorder, unspecified; F19.10 Other psychoactive substance abuse, uncomplicated; E86.0 Dehydration; F17.210 Nicotine dependence, cigarettes, uncomplicated; I27.20 Pulmonary hypertension, unspecified; R19.7 Diarrhea, unspecified; L03.116 Cellulitis of left lower limb
CPT/HCPCS: 36415; 71045-TC-FY; 74177-TC; 80048; 80053; 80061; 80307; 81003; 81015; 82040; 83036; 83605; 83690; 83735; 83880; 84484; 85025; 87040; 87086; 93005; 94640; 94761; 99291; C9803; J0131; U0003; U0005